=== PATIENT | female | born 2000 | race Caucasian/White ===

== ENCOUNTER 2025-02-06 19:25 | Emergency (ER) | payer BC ==
[2025-02-06] MEDS ORDERED: Ondansetron 4 MG Tab.DIS PO ONE (19:26)
[2025-02-06] MEDS ORDERED: Acetaminophen/oxyCODONE 325-5 MG Tab PO ONE (19:26)
[2025-02-06 19:54] LABS: BILIRUBIN,URINE NEGATIVE (NEGATIVE); GLUCOSE,URINE NORMAL (NORMAL); KETONES,URINE 150 mg/dL (NEGATIVE); LEUKOCYTE ESTERASE,URINE NEGATIVE (NEGATIVE); NITRITE,URINE NEGATIVE (NEGATIVE); OCCULT BLOOD,URINE MODERATE (NEGATIVE); PROTEIN,URINE TRACE mg/dL (NEGATIVE); UROBILINOGEN,URINE NORMAL (NEGATIVE)
[2025-02-06 19:55] LABS: APPEARANCE,URINE SLIGHTLY CLOUDY (CLEAR); COLOR,URINE YELLOW (YELLOW)
[2025-02-06] MEDS ORDERED: Sodium Chloride 0.9% 10 ML Syringe FLUSH PRN (19:58)
[2025-02-06 20:00] LABS: BACTERIA,URINE FEW (NS); MUCUS,URINE FEW (NS); RBC,URINE 0-5 (0-5); SQUAMOUS EPITHELIAL CELLS,UR FEW (NS,R,O); WBC,URINE 0-5 (0-5)
[2025-02-06 20:01] LABS: AMORPHOUS SEDIMENT,URINE FEW
[2025-02-06 20:13] LABS: HEMATOCRIT 38.7 % (34.2-48.2); HEMOGLOBIN 13.1 g/dL (11.4-15.5); MEAN CORPUSCULAR HEMOGLOBIN 27.9 pg (23.9-33.9); MEAN CORPUSCULAR VOLUME 82.2 fL (76.7-100.5); MEAN PLATELET VOLUME 9.4 fL (7.1-12.4); PLATELET COUNT,PLT 281 x10(3)uL (151-488); RED CELL DISTRIBUTION WIDTH 13.2 % (12.3-16.5); WHITE BLOOD CELL COUNT,WBC 15.6 x10-3/uL (3.0-10.3)
[2025-02-06] MEDS: Ondansetron 4 MG/2 ML SDV IVPUSH ONE (20:15)
[2025-02-06 20:18] LABS: BLOOD UREA NITROGEN,BUN 16 mg/dL (7-18); BUN/CREATININE RATIO 14.5 (9-20); CALCIUM 9.4 mg/dL (8.6-10.2); CARBON DIOXIDE,CO2 19 mmol/L (21-32); CHLORIDE,CL 103 mmol/L (100-110); CREATININE 1.1 mg/dL (0.55-1.02); EST CRCL DRUG DOSING (CG) 62.91 mL/min; ESTIMATED GFR 72 mL/min (>60); GLUCOSE RANDOM 170 mg/dL (80-116); SODIUM,NA 139 mmol/L (135-145)
[2025-02-06] MEDS: Sodium Chloride 0.9% 1,000 ML IV ONE (20:19)
[2025-02-06 20:33] LABS: BAND PERCENT MAN 1 % (0-6); LYMPHOCYTES PERCENT MAN 2 % (13-37); MONOCYTES PERCENT MAN 3 % (4-12); SEG NEUTROPHILS PERCENT MAN 94 % (46-82)
[2025-02-06] MEDS: Ketorolac 30 MG/ML SDV IVPUSH ONE (20:55)
[2025-02-06] MEDS ORDERED: Naloxone 0.4 MG/ML SDV IVPUSH PRN (22:50)
[2025-02-06] MEDS: HYDROmorphone 2 MG/ML SDV IVPUSH ONE (22:57)
[2025-02-06] MEDS: Metoclopramide 10 MG/2 ML SDV IVPUSH ONE (22:59)
[2025-02-06] MEDS: Potassium Chloride 20 MEQ Tab.ER PO ONE (23:32)
[2025-02-06] MEDS: Tamsulosin 0.4 MG Cap.ER PO ONE (23:32)
== END 2025-02-07 00:16 | disposition home or self-care (01) ==
LOC: FB.ED 19:25
DX: N13.2 Hydronephrosis with renal and ureteral calculous obstruction (principal); E87.6 Hypokalemia; E86.0 Dehydration; Z79.899 Other long term (current) drug therapy
CPT/HCPCS: 36415; 74176; 80048; 81001; 81025; 83605; 83735; 85025; 86140; 96361; 96374; 96375; 99284; A9270; J1171; J1885; J2405; J2765; J7030; Q0162

== ENCOUNTER 2025-03-06 02:27 | Emergency (ER) | payer BC ==
[2025-03-06] MEDS ORDERED: Sodium Chloride 0.9% 10 ML Syringe FLUSH PRN (03:06)
[2025-03-06] MEDS: Ketorolac 30 MG/ML SDV IVPUSH ONE ×2 (03:22→04:12)
[2025-03-06] MEDS: Ondansetron 4 MG/2 ML SDV IVPUSH ONE (03:23)
[2025-03-06 03:25] LABS: GLUCOSE,URINE NORMAL (NORMAL); OCCULT BLOOD,URINE LARGE (NEGATIVE)
[2025-03-06 03:29] LABS: BLOOD UREA NITROGEN,BUN 16 mg/dL (7-18); CARBON DIOXIDE,CO2 23 mmol/L (21-32); CHLORIDE,CL 105 mmol/L (100-110); CREATININE 1.1 mg/dL (0.55-1.02); EST CRCL DRUG DOSING (CG) 62.91 mL/min; ESTIMATED GFR 72 mL/min (>60); GLUCOSE RANDOM 167 mg/dL (80-116); POTASSIUM,K 3.4 mmol/L (3.5-5.3); SODIUM,NA 140 mmol/L (135-145)
[2025-03-06 03:32] LABS: APPEARANCE,URINE SLIGHTLY CLOUDY (CLEAR)
[2025-03-06 03:36] LABS: A/G RATIO 1.2; ALANINE AMINOTRANSFERASE,ALT 16 U/L (12-36); ASPARTATE AMNIOTRANSFERASE,AST 9 IU/L (5-25); BILIRUBIN TOTAL 0.4 mg/dL (0.1-1.3); MEAN PLATELET VOLUME 9.1 fL (7.1-12.4); PLATELET COUNT,PLT 373 x10(3)uL (151-488); PROTEIN TOTAL,TP 7.0 g/dL (6.0-8.0); RED BLOOD CELL COUNT 4.60 x10(6)uL (3.60-5.20); RED CELL DISTRIBUTION WIDTH 13.4 % (12.3-16.5); WHITE BLOOD CELL COUNT,WBC 20.8 x10-3/uL (3.0-10.3)
[2025-03-06 03:37] LABS: SQUAMOUS EPITHELIAL CELLS,UR FEW (NS,R,O)
[2025-03-06 04:11] LABS: LYMPHOCYTES PERCENT MAN 6 % (13-37); MONOCYTES PERCENT MAN 5 % (4-12); SEG NEUTROPHILS PERCENT MAN 89 % (46-82)
[2025-03-06] MEDS: Iopamidol 755 Mg/ML 100 ML Bottle IV SCH (04:34)
[2025-03-06] MEDS ORDERED: Naloxone 0.4 MG/ML SDV IVPUSH PRN (04:46)
[2025-03-06] MEDS: fentaNYL 100 MCG/2 ML SDV IVPUSH ONE (05:11)
== END 2025-03-06 05:48 | disposition home or self-care (01) ==
LOC: FB.ED 02:27
DX: N13.2 Hydronephrosis with renal and ureteral calculous obstruction (principal); Z79.899 Other long term (current) drug therapy
CPT/HCPCS: 74177; 80053; 81001; 83605; 85025; 86140; 87086; 87088; 87186; 96361; 96374; 96375; 96376; 99284; A9270; J1885; J2405; J3010; J7030; Q9967